=== PATIENT | male | born 1990 | race American Indian/Alaskan Native ===

== ENCOUNTER 2019-02-18 08:30 | Day surgery (SDC) | payer BC ==
[~2019-02-18 08:30] MED LIST: NACL 0.9% 1000 ML 1,000 ML IV SCH
[2019-02-18] MEDS ORDERED: ROBINUL ONE (09:00)
--- NOTE | 2019-02-18 09:06 | Anesthesia Consultation ---
Anesthesia Consult and Med Hx Date of service: 02/18/19 - Airway Anesthetic Teeth Evaluation: Good ROM Head & Neck: Adequate Mental/Hyoid Distance: Adequate Mallampati Class: Class II Intubation Access Assessment: Probably Good - Pre-Operative Health Status ASA Pre-Surgery Classification: ASA2 Proposed Anesthetic Plan: MAC - Gastrointestinal Hx Ulcer: Yes Hx Gastroesophageal Reflux Disease: Yes
--- NOTE | 2019-02-18 09:06 | Anesthesia Day of Surgery ---
Anesthesia Day of Surgery - Day of Surgery Patient Examined: Yes Patient H&P Reviewed: Yes Patient is NPO: Yes
[2019-02-18] MEDS ORDERED: SUBLIMAZE ONE (09:33)
[2019-02-18] MEDS ORDERED: DIPRIVAN 10 MG/ML IV ONE (09:34)
[2019-02-18] MEDS ORDERED: ZOFRAN ONE (09:34)
--- NOTE | 2019-02-18 09:59 | Procedure Note ---
Date of procedure: 02/18/19 Pre-op diagnosis: GERD Post-op diagnosis: other (moderate,Erosive Esophagitis/Small, Hiatal Hernia/Gastritis/R/O Celiac disease/ No Peptic Ulcer Disease noted) Procedure: EGD with Biopsy Anesthesia: MAC Surgeon: CARINA BATES Estimated blood loss: minimal Pathology: list Specimen disposition: to lab Condition: stable Disposition: observation (Treat with PPI and advice about lifestyle changes. Avoid aspirin and NSAID for 4 days. follow up in 1 to 2 weeks ([phone]).)
[2019-02-18] MEDS ORDERED: WATER FOR IRRIG STERILE IR ONE (10:09)
--- NOTE | 2019-02-18 10:24 | Operative Report ---
PROCEDURE: EGD with biopsy INDICATIONS: This is a 28-year-old -[place] gentleman who has been having severe GERD symptoms. EGD was done to assess for the problem and to assess for any associated peptic ulcer disease. Procedure was done after getting informed consent with MAC anesthesia. Instrument was passed through the hypopharynx into the esophagus, which showed moderate distal erosive esophagitis. The stomach showed a small hiatal hernia. There was some antral gastritis present. Biopsy was done from the gastric antrum, gastric body and angular incisura to rule out for H. pylori and atrophic gastritis. Additional biopsy was also done from the distal esophagus to assess for the severity of the erosive esophagitis. The pylorus was patent. The duodenum in the first and second portion appeared normal. Biopsy was done from the second part to rule out for any associated celiac disease. There was minimal bleeding from the biopsy sites. No complications associated with the procedure. ASSESSMENT: Gastroesophageal reflux disease symptoms, moderate erosive esophagitis, small hiatal hernia, gastritis, rule out celiac disease. Plan is to have the patient avoid aspirin and aspirin-related products for the next few days. Treat the patient with PPI. Have the patient follow up in the office in 1-2 weeks' time. The procedure was done in the GI lab with assistance of the GI lab team as well as assistance of anesthesia, the GI lab team included Kim SULLIVAN and Gordo morris. The patient will be asked to follow up in the office in 1-2 weeks' time. JOB# [id number] INGIRD/LAM
[2019-02-18 13:35] VITALS: BP 123/71
== END 2019-02-18 08:31 | disposition home or self-care (01) ==
LOC: GIO 08:30
DX: K29.50 Unspecified chronic gastritis without bleeding (principal); K21.0 Gastro-esophageal reflux disease with esophagitis; K44.9 Diaphragmatic hernia without obstruction or gangrene; K31.89 Other diseases of stomach and duodenum; Z79.899 Other long term (current) drug therapy
CPT/HCPCS: 43239; 88305; 88312; 88342; J2405; J2704; J3010; J7030

== ENCOUNTER 2022-03-12 13:26 | Emergency (ER) | payer BC | END 2022-03-13 00:29 | disposition left against medical advice (07) | LOC: ED 13:26 | DX: R10.9 Unspecified abdominal pain (principal); Z53.21 Procedure and treatment not carried out due to patient leaving prior to being seen by health care provider ==